=== PATIENT | female | born 1955 | race Caucasian/White ===

== ENCOUNTER 2020-02-02 12:56 | Outpatient (CLI) | payer BC, SELFPAY ==
--- NOTE | 2020-02-02 13:05 | MM_ITS ---
WS: [id number] BILATERAL DIGITAL SCREENING MAMMOGRAPHY WITH CAD CLINICAL INFORMATION: SCREEN HISTORY: Screening mammogram. No current complaints. COMPARISON: 2017 TECHNIQUE: Bilateral CC and MLO views. FINDINGS: Bilateral breast implants The breasts are composed of heterogeneous fibroglandular density tissue, which can limit the detectio n of small underlying mass lesions. No suspicious mass, asymmetry, calcifications, or architectural d istortion. No evidence of malignancy. MM/[place] [id number] IMPRESSION: BI-RADS: 2-Benign FOLLOW UP: 1 Year Follow-up Recommend return to annual screening mammography.
== END 2020-02-02 12:57 | disposition home or self-care (01) ==
LOC: RADSHAW 12:59
PROVIDERS: PCP Family Medicine; Visit Provider Family Medicine
DX: Z12.31 Encounter for screening mammogram for malignant neoplasm of breast (principal)
CPT/HCPCS: 77067

== ENCOUNTER 2020-05-09 14:57 | Emergency (ER) | payer BC, SELFPAY ==
[2020-05-09 15:05] VITALS: BP 122/66; PULSE 62; RESP 18; TEMP 36.3; O2SAT 99; BMI 24.2
== END 2020-05-09 15:59 | disposition left against medical advice (07) ==
LOC: ER 15:04
PROVIDERS: Emergency Provider Nurse Practitioner Family; PCP Family Medicine
DX: Z53.21 Procedure and treatment not carried out due to patient leaving prior to being seen by health care provider (principal)
CPT/HCPCS: 85025; 99281

== ENCOUNTER 2020-11-09 15:05 | Outpatient (CLI) | payer SELFPAY ==
--- NOTE | 2020-11-09 15:13 | MR_ITS ---
WS: [id number] MRI LEFT KNEE HISTORY: LEFT ANTERIOR KNEE PAIN COMPARISON: Radiograph 02/11/2020 Anterior cruciate ligament: Intact. Posterior cruciate ligament: Intact. Medial collateral ligament: Increased T2 signal and a large portion of the MCL. MCL is also displaced from the joint line by the extruded meniscus. The deep portion of the MCL is poorly visualized. Susp ect there is probably at least a partial tear involving the MCL above the joint line. Posterior lateral corner structures: Intact. Medial menisci: Anterior and posterior horns are abnormal. Fraying along the articular surfaces. Ther e is meniscal extrusion from the joint line in the posterior horn is small caliber. Lateral meniscus: Intact. Normal signal, size and shape. Extensor mechanism: Distal quadriceps tendon and patellar tendons are intact. Fluid and soft tissue: There is a large suprapatellar bursal collection. There is a large fluid colle ction along the posterior medial distal femur extending over length of 3.8 cm and transversely by 5.0 cm. This is closely associated with the tendon of the sartorius muscle and displacing the tendon. No Grimm's cyst. Osseous and articular structures: Patellofemoral compartment: Very minimal irregularity in the patellar cartilage. No marrow edema. Medial compartment: Severe narrowing medial compartment. There is bone upon bone with complete loss o f cartilage. Subchondral edema in the tibial plateau and femoral condyle and osteophytes. Lateral compartment: Moderate narrowing of the lateral compartment with osteophytes. Moderate loss of cartilage with a few full-thickness defects along the weightbearing surface of the femoral condyle. No marrow edema. MR/MR knee LT wo con* [id number] IMPRESSION: 1. Severe medial compartment internal derangement. Bone upon bone with loss of cartilage, subchondral edema and extruded meniscus. 2. Anterior and posterior menisci are abnormal in the medial compartment with extrusion from the joint line. 3. Moderate thinning of the MCL with increased T2 signal. Likely due to chroni c MCL injury. 4. Large fluid collection along the posterior medial knee closely associated w ith the sartorius tendon. Favor this is probably a ganglion and may be associat ed with the sartorius tendon.
== END 2020-11-09 15:06 | disposition home or self-care (01) ==
LOC: RADWPI 15:06
PROVIDERS: PCP Family Medicine; Visit Provider Family Medicine
DX: M25.562 Pain in left knee (principal)
CPT/HCPCS: 73721

== ENCOUNTER → 2021-10-27 10:58 | Outpatient (BNVA) | payer SELFPAY | PROVIDERS: PCP Family Medicine; Visit Provider Nurse Practitioner Family | DX: M17.12 Unilateral primary osteoarthritis, left knee (principal) | CPT/HCPCS: 73562 ==

== ENCOUNTER → 2022-07-24 14:45 | Outpatient (BNVA) | payer MEDICARE, OTHER, SELFPAY | PROVIDERS: PCP Family Medicine; Visit Provider Podiatrist Foot & Ankle Surgery | DX: M76.822 Posterior tibial tendinitis, left leg (principal); M21.42 Flat foot [pes planus] (acquired), left foot | CPT/HCPCS: 73610; 73630; 99203 ==

== ENCOUNTER 2022-09-06 14:28 | Outpatient (CLI) | payer MEDICARE, OTHER, SELFPAY | END 2022-09-06 14:29 | disposition home or self-care (01) | LOC: SPT 14:28 | PROVIDERS: PCP Family Medicine; Visit Provider Podiatrist Foot & Ankle Surgery | DX: Z46.89 Encounter for fitting and adjustment of other specified devices (principal); M79.671 Pain in right foot; M79.672 Pain in left foot | CPT/HCPCS: 97760; L3030 ==

== ENCOUNTER → 2022-11-05 14:22 | Outpatient (BNVA) | payer MEDICARE, OTHER, SELFPAY | PROVIDERS: PCP Family Medicine; Visit Provider Podiatrist Foot & Ankle Surgery | DX: M76.822 Posterior tibial tendinitis, left leg (principal); M21.42 Flat foot [pes planus] (acquired), left foot; B35.1 Tinea unguium | CPT/HCPCS: 99213 ==

== ENCOUNTER 2023-02-01 13:24 | Outpatient (CLI) | payer MEDICARE, OTHER, SELFPAY ==
--- NOTE | 2023-02-01 13:32 | MM_ITS ---
WS: [id number] BILATERAL 3D TOMOSYNTHESIS DIGITAL SCREENING MAMMOGRAPHY WITH CAD CLINICAL INFORMATION: SCREENING HISTORY: Screening mammogram. No current complaints. COMPARISON: 2020 TECHNIQUE: Bilateral CC and MLO views. FINDINGS: Bilateral breast implants appear intact. Scattered fibroglandular densities bilaterally. No suspicious focal mass, asymmetry, calcifications, or architectural distortion. No evidence of malignancy. Vascular calcification. IMPRESSION: MM/[place] [id number] BI-RADS: 2-Benign FOLLOW UP: 1 Year Follow-up Recommend return to annual screening mammography.
== END 2023-02-01 13:25 | disposition home or self-care (01) ==
PROVIDERS: PCP Family Medicine; Visit Provider Family Medicine
DX: Z12.31 Encounter for screening mammogram for malignant neoplasm of breast (principal)
CPT/HCPCS: 77063; 77067

== ENCOUNTER → 2023-11-04 10:33 | Outpatient (BNVA) | payer MEDICARE, SELFPAY | PROVIDERS: PCP Family Medicine; Visit Provider Family Medicine | DX: L98.9 Disorder of the skin and subcutaneous tissue, unspecified (principal) | CPT/HCPCS: 88305 ==

== ENCOUNTER → 2023-12-03 10:55 | Outpatient (BNVA) | payer MEDICARE, SELFPAY | PROVIDERS: PCP Family Medicine; Visit Provider Nurse Practitioner Family | DX: L82.1 Other seborrheic keratosis (principal); L57.8 Other skin changes due to chronic exposure to nonionizing radiation; L81.4 Other melanin hyperpigmentation; D22.62 Melanocytic nevi of left upper limb, including shoulder | CPT/HCPCS: 99203 ==

== ENCOUNTER → 2024-06-04 13:57 | Outpatient (BNVA) | payer MEDICARE, SELFPAY | PROVIDERS: PCP Family Medicine; Visit Provider Podiatrist Foot & Ankle Surgery | DX: M76.822 Posterior tibial tendinitis, left leg; M21.42 Flat foot [pes planus] (acquired), left foot; B35.1 Tinea unguium | CPT/HCPCS: 99213 ==

== ENCOUNTER 2024-06-29 11:46 | Outpatient (CLI) | payer MEDICARE, SELFPAY ==
--- NOTE | 2024-06-29 | ECG_ITS ---
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 Baseline heart rate was 113 bpm . Baseline blood pressure was 144/104 millimeters of mercury. Target heart rate was 153 beats per minute. Maximum heart rate achieved was 166, which was 108% of the target heart rate. Maximum blood pressure was 201/104 millimeters of mercury. Total exercise time was 5 minutes 34 seconds. Maximum METs achieved was 7.0, maximum VO2 was 24.5. The reason for ending the test was maximum effort achieved. The patient complained of shortness of breath during the stress test, which then resolved at the end of the test. ELECTROCARDIOGRAM: BASELINE: Showed sinus rhythm, normal axis, no significant ST-T changes at the baseline noted. EXERCISE: At the peak exercise level, no significant ST-T changes suggestive of ischemia noted. Frequent PVCs were noted. RECOVERY: During the recovery period, heart rate dropped appropriately. No significant ST-T changes in the recovery suggestive of ischemia noted. CONCLUSION: 1. Exercise capacity fair. 2. Heart rate response was tachycardic. 3. Blood pressure response was hypertensive. 4. Symptoms not suggestive of ischemia. 5. Electrocardiogram portion of the stress test was not suggestive of ischemia. 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
[2024-06-29 12:03] VITALS: BMI 26.2
[2024-06-29 12:34] VITALS: BP 169/86; PULSE 103
== END 2024-06-29 11:47 | disposition home or self-care (01) ==
PROVIDERS: PCP Family Medicine; Visit Provider Family Medicine
DX: R07.89 Other chest pain (principal); R00.0 Tachycardia, unspecified; R93.1 Abnormal findings on diagnostic imaging of heart and coronary circulation
CPT/HCPCS: 93017

== ENCOUNTER 2024-07-13 09:46 | Outpatient (CLI) | payer MEDICARE, SELFPAY | END 2024-07-13 09:47 | disposition home or self-care (01) | LOC: SPT 09:47 | PROVIDERS: PCP Family Medicine; Visit Provider Podiatrist Foot & Ankle Surgery | DX: Z46.89 Encounter for fitting and adjustment of other specified devices (principal); M76.829 Posterior tibial tendinitis, unspecified leg | CPT/HCPCS: L3030 ==

== ENCOUNTER 2024-09-18 10:05 | Outpatient (CLI) | payer MEDICARE, SELFPAY ==
[2024-09-18 10:45] LABS: Basophils % 0.6 %; Eosinophils % 0.6 %; Hematocrit 45.7 % (36-47); Lymphocytes # 1.4 10^3/uL (0.8-4.8); Lymphocytes % 29.5 %; Mean Corpuscular HGB Conc 32.8 g/dL (30-55); Mean Corpuscular Hemoglobin 30.2 pg (27-33); Mean Platelet Volume 9.8 fL (7.4-10.4); Monocytes # 0.4 10^3/uL (0.2-0.9); Monocytes % 8.2 %; Neutrophils # 2.94 10^3/uL (1.8-7.7); Neutrophils % 60.7 %; Nucleated Red Blood Cells % 0 %; Platelet Count 254 10^3/cmm (157-399); Red Blood Count 4.97 10^6/uL (3.85-5.65); Red Cell Distribution Width 12.3 % (12.1-15.1); White Blood Count 4.85 10^3/uL (3.29-11.43)
[2024-09-18 11:01] LABS: Blood Urea Nitrogen 17 mg/dL (8-23); Calcium 9.2 mg/dL (8.5-10.5); Carbon Dioxide 25 mmol/L (22-29); Chloride 104 mmol/L (98-107); Glomerular Filtration Rate 83.5 mL/min (90-130); Glucose 104 mg/dL (65-115); Osmolality Calculated 292 mOsm/kg (285-295); Sodium 140 mmol/L (136-145)
== END 2024-09-18 10:06 | disposition home or self-care (01) ==
PROVIDERS: PCP Family Medicine; Visit Provider Podiatrist Foot & Ankle Surgery
DX: M25.579 Pain in unspecified ankle and joints of unspecified foot (principal)
CPT/HCPCS: 36415; 80048; 85025

== ENCOUNTER 2024-09-18 10:45 | Emergency (ER) | payer MEDICARE, SELFPAY ==
[2024-09-18] VITALS (19 sets, daily range): BP systolic 130–159; BP diastolic 68–88; PULSE 58–74; RESP 16–28; TEMP 36.6; O2SAT 86–100; BMI 25.8
--- NOTE | 2024-09-18 10:55 | W.ED.ANXIETY ---
HPI - Anxiety General: Chief Complaint: Anxiety Stated Complaint: RAPID RESPONSE Time Seen by Provider: 09/18/24 10:48 History of Present Illness: 68-year-old female who presents emergency room via a rapid response called to outpatient lab with near syncope and an apparent panic attack. says that this has happened before with blood draws. She says her fingers are cramping. She feels numb all over. She is tachypneic. Lab work was for a planned foot surgery. Related Data Home Medications ?Medication ?Instructions ?Recorded ?Confirmed ferrous sulfate 325 mg (65 mg 325 mg PO DAILY 11/23/20 09/18/24 iron) tablet Previous Rx's ?Medication ?Instructions ?Recorded metoprolol succinate 50 mg 50 mg PO DAILY #90 tabs 03/10/24 tablet,extended release 24 hr escitalopram oxalate 20 mg tablet 20 mg PO DAILY #90 tabs 08/11/24 Allergies Allergy/AdvReac Type Severity Reaction Status Date / Time Penicillins Allergy ADR-Rash Verified 06/04/24 14:29 Review of Systems Narrative: Constitutional symptoms: Negative except as documented in HPI. Skin symptoms: Negative except as documented in HPI. Eye symptoms: Negative except as documented in HPI. ENMT symptoms: Negative except as documented in HPI. Respiratory symptoms: Negative except as documented in HPI. Cardiovascular symptoms: Negative except as documented in HPI. Gastrointestinal symptoms: Negative except as documented in HPI. Genitourinary symptoms: Negative except as documented in HPI. Musculoskeletal symptoms: Negative except as documented in HPI. Neurologic symptoms: Negative except as documented in HPI. Psychiatric symptoms: Negative except as documented in HPI. Endocrine symptoms: Negative except as documented in HPI. PFS ED PFSH: Medical History Moderate major depression Sinus arrhythmia Plantar fascial fibromatosis Surgical History History of breast augmentation History of left knee replacement Family History Mother Cancer esophageal, lung (smoker) Father Cancer lung (smoker) Brother Diabetes Denies family history of CAD (coronary artery disease) Dementia Chronic kidney disease (CKD) Stroke Social History (Reviewed 06/04/24 @ 14:29 by ANGELA Mccann Smoking and tobacco/nicotine status: never used tobacco/nicotine Alcohol intake: never Substance/Drug Use: never Lives independently: Yes Household members: spouse Marital status: Marital status details: in 1999 Number of children: 3 Number of grandchildren: 7 Current occupational status: retired 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 Skin: Warm, dry. Head: Normocephalic, atraumatic. Neck: Supple, trachea midline. Eye: Extraocular movements are intact. Ears, nose, mouth and throat: mucosa moist. Cardiovascular: Regular, Normal peripheral perfusion. Respiratory: Lungs are clear to auscultation, tachypneic Gastrointestinal: Soft, Nontender, Non distended Musculoskeletal: Normal ROM, no deformity. Neurological: Alert and oriented, No focal neurological deficit observed. Psychiatric: Cooperative, patient appears quite anxious. She is tachypneic. Course Vital Signs: Vital signs: Vital Signs Temperature 97.9 F 09/18/24 10:48 Pulse Rate 62 09/18/24 11:13 Respiratory Rate 16 09/18/24 11:13 Blood Pressure 130/68 09/18/24 11:13 Pulse Oximetry 100 09/18/24 11:13 Oxygen Delivery Me thod Room Air 09/18/24 11:13 MDM - Anxiety Medical Decision Making Assessment and plan: Panic attack Hyperventilation - Discharged home - Discussed plan with patient. Answered any questions. - Evaluation and treatment of this problem were appropriate in the emergency setting. Lab Data Laboratory Results POC Glucose 133 mg/dL (70-110) H 09/18/24 11:01 No radiology studies performed this visit Discharge Plan Discharge Patient Disposition: Home Clinical Impression: Acute anxiety, Hyperventilation Condition: Stable Prescriptions: No Action ferrous sulfate 325 mg (65 mg iron) tablet 325 mg PO DAILY metoprolol succinate 50 mg tablet extended release 24 hr 50 mg PO DAILY Qty: 90 3RF escitalopram oxalate 20 mg tablet 20 mg PO DAILY Qty: 90 3RF Discharge Orders: Discharge ED (Routine); Ordered 09/18/24 Ordered By: Criselda Varela Referrals: Isa Oneil MD [Primary Care Provider, Family Practice] Discharge Diet: Usual diet Discharge Activity: Increase activity as tolerated Patient Instructions: Opioid Safety, Pain Management Activity Restrictions/Additional Instructions: Thank you for choosing [facility] for your healthcare needs today. You have been screened and evaluated and felt safe for discharge. Health conditions do change or evolve sometimes and as such it is important that you follow up with your Primary Doctor to be re checked, 3-5 days is a general good time frame for follow up. You are always welcome to return to the ED for re assessment if your symptoms are worsening or you have new concerns Print Language: German Coding Level of Care Code ED Legislative Assistant for Itzel Gardner
[2024-09-18 11:16] LABS: Glucose Point of Care 133 mg/dL (70-110)
[2024-09-18] MEDS: ondansetron 2 mg/ML SDV 2 mL 4 MG IVP (11:22)
[2024-09-18] MEDS: LORazepam 1 MG/0.5 ML injection IVP (11:23)
== END 2024-09-18 12:39 | disposition home or self-care (01) ==
PROVIDERS: Emergency Provider Emergency Medicine; PCP Family Medicine
DX: F41.8 Other specified anxiety disorders (principal); R06.4 Hyperventilation
CPT/HCPCS: 36416; 82962; 96374; 96375; 99284; J2060; J2405

== ENCOUNTER → 2024-12-02 13:13 | Outpatient (BNVA) | payer MEDICARE, SELFPAY | PROVIDERS: PCP Family Medicine; Visit Provider Nurse Practitioner Family | DX: L57.8 Other skin changes due to chronic exposure to nonionizing radiation (principal); L81.4 Other melanin hyperpigmentation; D22.5 Melanocytic nevi of trunk; L82.1 Other seborrheic keratosis; L81.1 Chloasma; D48.5 Neoplasm of uncertain behavior of skin | CPT/HCPCS: 11102; 99213 ==

== ENCOUNTER → 2025-02-23 09:37 | Outpatient (BNVA) | payer MEDICARE, SELFPAY | PROVIDERS: PCP Family Medicine; Visit Provider Podiatrist Foot & Ankle Surgery | DX: M25.571 Pain in right ankle and joints of right foot (principal); M25.572 Pain in left ankle and joints of left foot; M25.371 Other instability, right ankle; M25.372 Other instability, left ankle; M19.072 Primary osteoarthritis, left ankle and foot | CPT/HCPCS: 73610; 99204 ==

== ENCOUNTER → 2025-05-10 15:25 | Outpatient (BNVA) | payer MEDICARE, SELFPAY | PROVIDERS: PCP Family Medicine; Visit Provider Nurse Practitioner Family | DX: L81.1 Chloasma (principal); L82.0 Inflamed seborrheic keratosis; L82.1 Other seborrheic keratosis; D22.62 Melanocytic nevi of left upper limb, including shoulder; L81.4 Other melanin hyperpigmentation | CPT/HCPCS: 17110; 99213 ==